=== PATIENT | female | born 1970 | race Caucasian/White ===

== ENCOUNTER 2019-07-29 00:51 | Day surgery (SDC) | payer BC, SELFPAY ==
[2019-07-27 14:41] VITALS: BMI 24.2
[2019-07-29 06:40] VITALS: BP 131/82; PULSE 87; RESP 20; TEMP 36.2; O2SAT 100; BMI 23.2
--- NOTE | 2019-07-29 07:15 | PM.HPGS ---
History of Present Illness History of Present Illness Consent: Risks, benefits, and alternatives have been discussed and questions answered. Patient agrees to proceed with procedure. Chief complaint: Neoplasm Screening Narrative: Freda Christina is a 49 year old female here for screening colonoscopy Meds Home Medications and Allergies Home Medications Medication Instructions Recorded Confirmed Type irbesartan 150 mg PO DAILY 07/28/19 07/29/19 History venlafaxine 75 mg PO DAILY 07/28/19 07/29/19 History Allergies Allergy/AdvReac Type Severity Reaction Status Date / Time No Known Allergies Allergy Mild Verified 07/29/19 06:55 Vital Signs Vital Signs - 24 hr 07/29/19 06:40 Temperature 36.2 C L Pulse Rate 87 Respiratory Rate 20 Blood Pressure 131/82 Pulse Oximetry 100 Exam Resp: Auscultation: clear to auscultation bilaterally Cardio: Rate: regular rate Rhythm: regular rhythm GI: GI Palp: Yes Soft to palpation and No Tenderness to palpation present (GI) Assessment and Plan Assessment and plan (1) Colon cancer screening: Code(s): Z12.11 - Encounter for screening for malignant neoplasm of colon Status: Acute Assessment and Plan: Colonoscopy with possible biopsy or polypectomy or cautery or injection of substances.
[2019-07-29] MEDS: LACTATED RINGERS 1,000 ML 150 ML IV CONT (07:23)
--- NOTE | 2019-07-29 07:33 | WPDANESEPPF ---
Anes - Initial Pre Proc Eval Procedure: Operation Date: 07/29/19 08:00 Proposed Procedures p Screening Colonoscopy - Waylon Massey MD Date/Time: 07/29/19 07:33 Surgeon: Waylon Massey MD Pre Op Diagnosis: Neoplasm Screening Patient Data Age: 49 Gender: F Height: 5 ft 7.2 in Weight: 67.7 kg Last Vital Signs Temp 97.1 F L 07/29/19 06:40 Pulse 87 07/29/19 06:40 Resp 20 07/29/19 06:40 BP 131/82 07/29/19 06:40 Pulse Ox 100 07/29/19 06:40 Allergies Allergy/AdvReac Type Severity Reaction Status Date / Time No Known Allergies Allergy Mild Verified 07/29/19 06:55 Home Medications Medication Instructions Recorded Confirmed Type irbesartan 150 mg PO DAILY 07/28/19 07/29/19 History venlafaxine 75 mg PO DAILY 07/28/19 07/29/19 History Patient hx anesthesia problems: none Family hx anesthesia problems: none [facility] Past Medical History Medical History (Updated 07/29/19 @ 07:33 by Masoud Cochran MD) Anxiety Depression Hypertension Anes - Eval Final PreProcedure Day of Procedure 07/29/19 07:33 Patient weight: normal Heart: regular rate and rhythm Lungs: clear to auscultation Airway: Mallampati scale class III Neurological: alert and oriented Last oral intake: >/= 8 hours ASA classification: II Emergent: no Anesthetic plan: proceed Anesthesia type and monitoring: general GIVS and standard monitoring Informed Consent: The patient's anesthetic plan and its attendant risks and benefits were discussed with the patient/family/POA. Questions were solicited and answers provided to the satisfaction of the patient/family/POA.
[2019-07-29 08:04] VITALS: BP 123/71; PULSE 90; RESP 20; O2SAT 96
[2019-07-29 08:14] VITALS: BP 135/78; PULSE 90; RESP 20; O2SAT 98
[2019-07-29 08:24] VITALS: BP 134/80; PULSE 79; RESP 18; O2SAT 100
== END 2019-07-29 08:41 | disposition home or self-care (01) ==
PROVIDERS: PCP Emergency Medicine; Visit Provider Internal Medicine Gastroenterology
PROC: 0DJD8ZZ Inspection of Lower Intestinal Tract, Via Natural or Artificial Opening Endoscopic (ICD-10-PCS; CPT 45378; principal; 2019-07-29 08:00)
DX: Z12.11 Encounter for screening for malignant neoplasm of colon (principal); K64.8 Other hemorrhoids; I10 Essential (primary) hypertension; F41.8 Other specified anxiety disorders
CPT/HCPCS: 45378; J2704; J7120